=== PATIENT | female | born 2000 | race Caucasian/White ===

== ENCOUNTER 2022-10-11 18:34 | Emergency (ER) | payer OTHER ==
[~2022-10-11] VITALS: Ht 147.3 cm; Wt 102.1 kg
[2022-10-11] MEDS ORDERED: IOPAMIDOL 370 MG/ML 100 ML INFUS..BTL INJ ONE (19:33)
[2022-10-11] MEDS: SODIUM CHLORIDE 0.9% 1000ML 1,000 ML IV STA (20:07)
[2022-10-11] MEDS ORDERED: SODIUM CHLORIDE 0.9% 1000ML 1,000 ML ONE ×2 (20:14→20:20)
[2022-10-11] MEDS ORDERED: ACETAMINOPHEN500 MG PO (20:42)
[2022-10-11] MEDS ORDERED: CEFDINIR300 MG PO (20:42)
[2022-10-11] MEDS: KETOROLAC TROMETHAMINE 30 MG/ML VIAL IV STA (20:51)
[2022-10-11] MEDS ORDERED: KETOROLAC TROMETHAMINE 30 MG/ML VIAL ONE (20:56)
== END 2022-10-11 21:00 | disposition home or self-care (01) ==
LOC: FSED 18:48
DX: N39.0 Urinary tract infection, site not specified (principal); R10.31 Right lower quadrant pain
CPT/HCPCS: 74177; 80053; 80307; 81003; 85025; 99284; J1885; J7030; Q9967

== ENCOUNTER 2023-01-12 16:31 | Emergency (ER) | payer BC, OTHER ==
[~2023-01-12] VITALS: Ht 149.9 cm; Wt 104.3 kg
[~2023-01-12 16:31] MED LIST: ACETAMINOPHEN500 MG PO; CEFDINIR300 MG PO; MACROBID 100 M100 MG PO; birth control
== END 2023-01-12 18:46 | disposition home or self-care (01) ==
LOC: FSED 16:34
DX: N34.2 Other urethritis (principal); R30.0 Dysuria
CPT/HCPCS: 81003; 81025; 99282

== ENCOUNTER 2023-04-14 06:47 | Emergency (ER) | payer BC, OTHER ==
[~2023-04-14] VITALS: Ht 149.9 cm; Wt 104.3 kg
[2023-04-14 06:50] VITALS: O2SAT 100
[2023-04-14 07:18] LABS: CLARITY,URINE CLEAR (CLEAR); COLOR,URINE YELLOW (YELLOW); KETONES,URINE NEGATIVE (NEGATIVE); LEUKOCYTE ESTERASE ,URINE NEGATIVE (NEGATIVE); NITRITE,URINE NEGATIVE (NEGATIVE); PROTEIN,URINE DIPSTICK NEGATIVE (NEGATIVE); URINE UROBILINOGEN 0.2 mg/dL (0.2 - 1)
[2023-04-14 07:32] LABS: BACTERIA,URINE FEW /HPF; EPITHELIAL CELLS,URINE RARE /LPF; RBC,URINE 0-5 /HPF (0-5); WBC,URINE (MAN) 0-5 /HPF (0-5)
[2023-04-14] MEDS ORDERED: MACROBID 100 M100 MG PO (07:45)
== END 2023-04-14 07:51 | disposition home or self-care (01) ==
LOC: ER 06:59
DX: O26.891 Other specified pregnancy related conditions, first trimester (principal); R82.71 Bacteriuria; R30.0 Dysuria; E66.9 Obesity, unspecified
CPT/HCPCS: 81001; 81025; 87086; 99283

== ENCOUNTER 2023-04-29 10:36 | Emergency (ER) | payer BC, OTHER ==
[~2023-04-29] VITALS: Ht 147.3 cm; Wt 102.6 kg
[2023-04-29] MEDS ORDERED: VITAFOL-OB+DHA1 EACH (10:52)
[2023-04-29] MEDS ORDERED: PROGESTERONE100 MG (10:52)
[2023-04-29 11:11] VITALS: O2SAT 100
== END 2023-04-29 11:11 | disposition home or self-care (01) ==
LOC: FSED 10:39
DX: O20.0 Threatened abortion (principal)
CPT/HCPCS: 36415; 81003; 81025; 84702; 99283

== ENCOUNTER 2023-05-14 13:12 | Emergency (ER) | payer BC, OTHER ==
[~2023-05-14] VITALS: Ht 149.9 cm; Wt 102.3 kg
[~2023-05-14 13:12] MED LIST changes: +PROGESTERONE100 MG; +VITAFOL-OB+DHA1 EACH
[2023-05-14] MEDS ORDERED: CEFDINIR300 MG PO (13:36)
[2023-05-14 13:43] VITALS: O2SAT 97
[2023-05-14] MEDS ORDERED: CEPHALEXIN500 MG PO (14:11)
== END 2023-05-14 13:43 | disposition home or self-care (01) ==
LOC: FSED 13:16
DX: O23.41 Unspecified infection of urinary tract in pregnancy, first trimester (principal); N39.0 Urinary tract infection, site not specified; R30.0 Dysuria; E66.9 Obesity, unspecified
CPT/HCPCS: 81003; 81025; 99283

== ENCOUNTER 2023-10-17 12:29 | Emergency (ER) | payer BC, OTHER ==
[~2023-10-17] VITALS: Ht 149.9 cm; Wt 108.9 kg
[~2023-10-17 12:29] MED LIST changes: +CEFPODOXIME PR200 MG PO; +CEPHALEXIN500 MG PO
[2023-10-17 14:01] VITALS: O2SAT 99
== END 2023-10-17 14:13 | disposition home or self-care (01) ==
LOC: FSED 12:38
DX: O26.893 Other specified pregnancy related conditions, third trimester (principal); J06.9 Acute upper respiratory infection, unspecified; R05.9 Cough, unspecified; H68.101 Unspecified obstruction of Eustachian tube, right ear; H92.01 Otalgia, right ear; J02.9 Acute pharyngitis, unspecified; E66.9 Obesity, unspecified
CPT/HCPCS: 99283

== ENCOUNTER 2024-03-16 19:42 | Emergency (ER) | payer BC, OTHER ==
[~2024-03-16] VITALS: Ht 147.3 cm; Wt 95.3 kg
[2024-03-16 21:25] VITALS: O2SAT 100
== END 2024-03-16 21:38 | disposition home or self-care (01) ==
LOC: FSED 19:46
DX: S62.626A Displaced fracture of middle phalanx of right little finger, initial encounter for closed fracture (principal); X50.1XXA Overexertion from prolonged static or awkward postures, initial encounter; Y92.89 Other specified places as the place of occurrence of the external cause; E66.9 Obesity, unspecified
CPT/HCPCS: 99283

== ENCOUNTER 2024-08-06 09:17 | Emergency (ER) | payer BC, OTHER ==
[~2024-08-06] VITALS: Ht 149.9 cm; Wt 92.1 kg
[~2024-08-06 09:17] MED LIST changes: +BACTRIM DS TAB1 EACH PO; +BIRTH CONTROL; +IBUPROFEN200 MG PO; +PROBIOTIC & AC1 EACH PO
[2024-08-06 09:23] VITALS: PULSE 71; RESP 18; TEMP 98.5
[2024-08-06] MEDS ORDERED: SODIUM CHLORIDE 0.9% 1000ML 1,000 ML ONE (09:41)
[2024-08-06] MEDS ORDERED: FAMOTIDINE 20 MG/2 ML VIAL IV ONE (09:42)
[2024-08-06] MEDS: KETOROLAC TROMETHAMINE 30 MG/ML VIAL IV STA (10:16)
[2024-08-06] MEDS: SODIUM CHLORIDE 0.9% 1000ML 1,000 ML IV STA (10:17)
[2024-08-06] MEDS ORDERED: IOPAMIDOL 370 MG/ML 100 ML INFUS..BTL INJ ONE (11:07)
[2024-08-06 13:07] VITALS: BP 129/65; PULSE 65; RESP 18; TEMP 98.4; O2SAT 98
== END 2024-08-06 12:57 | disposition home or self-care (01) ==
LOC: FSED 09:32
DX: R10.32 Left lower quadrant pain (principal); S39.012A Strain of muscle, fascia and tendon of lower back, initial encounter; N83.201 Unspecified ovarian cyst, right side; K44.9 Diaphragmatic hernia without obstruction or gangrene; E66.9 Obesity, unspecified
CPT/HCPCS: 74177; 80048; 81003; 81025; 85025; 99284; J1885; J7030; Q9967

== ENCOUNTER 2024-10-12 13:10 | Emergency (ER) | payer BC, OTHER ==
[~2024-10-12] VITALS: Ht 149.9 cm; Wt 89.0 kg
[2024-10-12 13:20] VITALS: PULSE 118; RESP 16; TEMP 98.4
[2024-10-12 14:37] VITALS: BP 134/86; PULSE 100; RESP 16; TEMP 98.2; O2SAT 98
== END 2024-10-12 14:38 | disposition home or self-care (01) ==
LOC: FSED 13:19
DX: R05.9 Cough, unspecified (principal); J02.9 Acute pharyngitis, unspecified; H92.03 Otalgia, bilateral; Z11.52 Encounter for screening for COVID-19
CPT/HCPCS: 0223U; 83518; 87400; 99284

== ENCOUNTER 2024-12-31 20:51 | Emergency (ER) | payer BC, OTHER ==
[~2024-12-31] VITALS: Ht 149.9 cm; Wt 92.1 kg
[2024-12-31] MEDS ORDERED: MACROBID 100 M100 MG PO (21:23)
[2024-12-31] MEDS ORDERED: PYRIDIUM100 MG PO (21:24)
[2024-12-31 21:53] VITALS: PULSE 67; RESP 18; TEMP 98.8
[2024-12-31 21:59] VITALS: BP 127/78; PULSE 68; RESP 18; TEMP 98.8; O2SAT 100
== END 2024-12-31 22:03 | disposition home or self-care (01) ==
LOC: FSED 20:54
DX: R30.0 Dysuria (principal); N39.0 Urinary tract infection, site not specified; E66.9 Obesity, unspecified
CPT/HCPCS: 81003; 81025; 99283

== ENCOUNTER 2025-07-05 11:18 | Emergency (ER) | payer BC ==
[~2025-07-05] VITALS: Ht 149.9 cm; Wt 92.3 kg
[~2025-07-05 11:18] MED LIST changes: +PYRIDIUM100 MG PO
[2025-07-05 14:36] VITALS: PULSE 63; RESP 18; TEMP 97.5; O2SAT 100
== END 2025-07-05 14:36 | disposition home or self-care (01) ==
LOC: FSED 11:34
DX: H92.01 Otalgia, right ear (principal); R51.9 Headache, unspecified; E66.9 Obesity, unspecified; Z96.642 Presence of left artificial hip joint
CPT/HCPCS: 70450; 81025; 99283